=== PATIENT | female | born 1955 | race Caucasian/White ===

== ENCOUNTER → 2024-11-09 | Outpatient (CLI) | payer MEDICARE, SELFPAY ==
--- NOTE | 2024-11-09 11:52 | BI_ITS ---
PROCEDURE: SCRN MAMM (CAD)W/ANURAG BILAT REASON FOR EXAM: F, Age 69 y/o, no family history. Routine mammogram. TECHNIQUE: Bilateral screening digital breast tomosynthesis with 2D and 3D images. Computer aided detection. COMPARISON: Prior exam(s) dating back to comparison is made with prior outside examination dated June 24, 2000 23.. FINDINGS: The breasts are almost entirely fatty. Stable bilateral axillary lymph nodes. Interval increase in size of the previously seen nodules in the upper-outer quadrant of both breasts. Correlation with bilateral breast ultrasound recommended. No suspicious masses, areas of developing architectural distortion, or suspicious calcifications. BI/SCRN MAMM (CAD)W/ANURAG BILAT IMPRESSION: BI-RADS 0: INCOMPLETE - NEED ADDITIONAL IMAGING EVALUATION. Follow-up code: Targeted ultrasound of both small nodules in the upper-outer as pect of the right and left breasts. The patient will be notified of the results by letter. Reading Location: [facility]
== END | disposition home or self-care (01) ==
PROVIDERS: PCP Family Medicine; Referring Provider Family Medicine; Visit Provider Family Medicine
DX: Z12.31 Encounter for screening mammogram for malignant neoplasm of breast (principal)
CPT/HCPCS: 77063; 77067

== ENCOUNTER → 2024-11-11 | Outpatient (CLI) | payer MEDICARE, SELFPAY ==
--- NOTE | 2024-11-11 12:20 | US_ITS ---
PROCEDURE: BREAST LIMITED UNILATERAL REASON FOR EXAM: Abnormal screening mammogram. COMPARISON: Comparison is made with prior mammogram done earlier in the day. TECHNIQUE: Targeted sonogram of the left breast was obtained. FINDINGS: LEFT: Ultrasound targeted to the lateral aspect of the left breast. There is a 6 mm x 5 mm x 4 mm well-defined hypoechoic nodule with a fatty hilum at the 3 o'clock position of the breast at 6 cm from the nipple. This corresponds to the mammographic findings and most likely represents a benign-appearing lymph node. US/Breast Limited Unilateral IMPRESSION: Findings suggestive of a 6 mm x 5 mm x 4 mm benign-appearing lymph node at the 3 o'clock position of the left breast at 6 cm from the nipple. BI-RADS 2: BENIGN. RECOMMEND ANNUAL MAMMOGRAPHIC SCREENING. Reading Location: [id number]
--- NOTE | 2024-11-11 12:20 | US_ITS ---
PROCEDURE: BREAST LIMITED UNILATERAL REASON FOR EXAM: Abnormal screening mammogram. COMPARISON: Comparison is made with prior mammogram done earlier in the day. TECHNIQUE: Targeted right breast ultrasound. FINDINGS: RIGHT: Ultrasound targeted to the lateral aspect at the right breast. There is a 6 mm x 5 mm x 4 mm well-defined hypoechoic nodule with a fatty hilum at the 9 o'clock position of the breast at 6 cm from the nipple. This corresponds with the mammographic abnormality most likely represents a benign appearing lymph node. US/Breast Limited Unilateral IMPRESSION: Findings suggestive of benign-appearing lymph node as described. Routine mammo graphic follow-up recommended. Reading Location: [id number]
== END | disposition home or self-care (01) ==
PROVIDERS: PCP Family Medicine; Referring Provider Family Medicine; Visit Provider Family Medicine
DX: R92.8 Other abnormal and inconclusive findings on diagnostic imaging of breast (principal); N63.10 Unspecified lump in the right breast, unspecified quadrant; N63.20 Unspecified lump in the left breast, unspecified quadrant
CPT/HCPCS: 76642

== ENCOUNTER → 2025-01-22 | Outpatient (CLI) | payer MEDICARE, SELFPAY ==
[2025-01-22 10:49] LABS: Absolute Neutrophil Count 2.7 X10^3/uL (2.0-7.7); Basophil# 0.06 X10^3/uL; Eosinophil# 0.13 X10^3/uL; Eosinophils% 2.1 % (0-5); Hematocrit 35.8 % (37-47); Hemoglobin 12.1 g/dL (12.0-15.0); Lymphocyte % 46.5 % (19-41); Mean Corp Hgb Conc 33.8 g/dL (32-36); Mean Corpuscular Hgb 30.8 pg (27.0-32.0); Mean Corpuscular Volume 91.1 fL (81-99); Mean Platelet Vol. 9.2 fl (6.2-12.0); Monocyte# 0.39 X10^3/uL; Monocyte% 6.3 % (0-10); NRBC Flagged by Analyzer 0 % (0-5); Neutrophil # 2.73 X10^3/uL (2.7-7.7); Neutrophil % 43.8 % (47-70); POSITIVE MORPHOLOGY YES; Platelet Count 188 K/mm3 (150-450); RBC Distribution Width CV 14.3 % (11.6-14.6); RBC Distribution Width SD 47.4 fl (35.1-43.9); Red Blood Count 3.93 M/mm3 (4.2-5.4); White Blood Count 6.2 K/mm3 (4.4-11.0)
[2025-01-22 10:50] LABS: Differential Indicated SCAN CRITERIA MET
[2025-01-22 11:24] LABS: Reactive Lymphocyte RARE
[2025-01-22 11:39] LABS: ALB/GLOB Ratio 1.5 RATIO (0.9-2.4); AST(SGOT) 24 U/L (<=31); Alanine Aminotransfer ALT/SGPT 32 U/L (<=34); Alkaline Phosphatase 91 U/L (35-104); BUN 17 mg/dL (4-19); BUN/Creat Ratio 21.2 RATIO (10-20); Calcium,Total 9.1 mg/dL (7.6-11.0); Carbon Dioxide 23.8 mmol/L (21.0-32.0); Chloride 107 mmol/L (98-108); Cholesterol 141 mg/dL (<=200); EST Glomerular Filtration Rate 80 (>60); Globulin 2.7 g/dL (2.2-4.2); Glucose 94 mg/dL (70-99); High Density Lipoprotein 43 mg/dL; Low Density Lipoprotein Calc. 82 mg/dL; Potassium 4.5 mmol/L (3.3-5.1); Protein, Total 6.7 g/dL (5.9-8.4); Sodium Level 140 mmol/L (133-145); Total Bilirubin 0.45 mg/dL (0.00-1.30); Triglycerides 80 mg/dL; Very Low Density Lipoprotein 16 mg/dL (5-40); cholesterol:hdl ratio screen 3.29
[2025-01-22 11:40] LABS: Anion Gap 9 (5-15)
== END | disposition home or self-care (01) ==
LOC: LAB 09:42
PROVIDERS: PCP Family Medicine; Referring Provider Family Medicine; Visit Provider Family Medicine
DX: Z00.00 Encounter for general adult medical examination without abnormal findings (principal); I48.91 Unspecified atrial fibrillation
CPT/HCPCS: 36415; 80053; 80061; 85025

== ENCOUNTER → 2025-08-17 | Outpatient (CLI) | payer MEDICARE, SELFPAY | END | disposition home or self-care (01) | LOC: MTLAB 09:19 | PROVIDERS: PCP Family Medicine; Referring Provider Nurse Practitioner Family; Visit Provider Nurse Practitioner Family | DX: I48.0 Paroxysmal atrial fibrillation (principal); Z79.899 Other long term (current) drug therapy | CPT/HCPCS: 36415; 80299 ==

== ENCOUNTER → 2025-09-21 | Outpatient (CLI) | payer MEDICARE, SELFPAY ==
--- NOTE | 2025-09-21 13:56 | RAD_ITS ---
PROCEDURE: CHEST PA AND LATERAL 09/21/2025 REASON FOR EXAM: COUGH TECHNIQUE: Procedure Code: RADCXR Modality: DX Procedure: CHEST PA AND LATERAL COMPARISON: None provided. RAD/Chest PA and Lateral IMPRESSION: Right upper quadrant abdominal surgical clips are seen. Prior lower cervical surgery is noted. Prior sternotomy is seen. Small left and smaller right pleural effusions are seen. Indistinct pulmonary veins and possible/subtle Devon B-lines, are suggestive o f mild interstitial pulmonary edema. No focal infiltrate is evident. The cardiomediastinal silhouette demonstrates borderline cardiac enlargement. [id number] degenerative changes of the visualized spine are also seen. Reading Location: [place] [id number]
== END | disposition home or self-care (01) ==
LOC: MTRAD 13:54
PROVIDERS: PCP Family Medicine; Referring Provider Family Medicine; Visit Provider Family Medicine
DX: R05.9 Cough, unspecified (principal)
CPT/HCPCS: 71046